=== PATIENT | male | born 1995 | race Hispanic/Latino ===

== ENCOUNTER 2021-06-08 16:35 | Emergency (ER) | payer OTHER ==
[~2021-06-08] VITALS: Ht 165.1 cm; Wt 70.3 kg
--- NOTE | 2021-06-08 16:51 | NUR ---
ARRIVAL PRESENTED TO ED RM#6 AMBULATORY WITH C/O "CHEST HEAVINESS/TIGHTNESS," STARTED YESTERDAY. TESTED POSITIVE FOR COVID LAST 05/31/20. VS OBTAINED. DR. DRUMMOND NOTIFIED OF PATIENT ARRIVAL/VS.
--- NOTE | 2021-06-08 16:52 | ER.PDOC ---
General Chief Complaint: Requesting Medical Care Stated Complaint: CHEST HEAVINESS Time seen by MD: 16:50 Source: patient Exam Limitations: no limitations History of Present Illness Initial Comments This is a 26-year-old man who comes to the emergency department with chest pain that is described as a tightness and pressure. It started yesterday and is sti ll present today although it is less severe. He tested positive for Covid a days ago although he had the to Pfizer immunizations. No prior medical history no surgeries in the past he is not allergic to anything he was taking DayQuil and Tylenol for his symptoms. Activities at Onset: none Modifying Factors: breathing Allergies: Coded Allergies: No Known Allergies (Unverified , 06/08/21) Past Medical History Medical History: no pertinent history Constitutional: denies no symptoms reported, denies see HPI, denies chills, denies diaphoresis, denies fever, denies malaise, denies weakness, denies other EENTM: denies no symptoms reported, denies see HPI, denies eye pain, denies blurred vision, denies tearing, denies double vision, denies ear pain, denies ear discharge, denies nose pain, denies nose congestion, denies throat pain, denies throat swelling, denies mouth pain, denies mouth swelling, denies other Respiratory: denies no symptoms reported, denies see HPI, denies cough, denies orthopnea, denies shortness of breath, denies SOB with exertion, denies SOB at rest, denies stridor, denies wheezing, denies other Cardiovascular: denies no symptoms reported, denies see HPI, denies chest pain, denies edema, denies irregular heart rate, denies lightheadedness, denies palpitations, denies syncope, denies other Gastrointestinal: denies no symptoms reported, denies see HPI, denies abdomen distended, denies abdominal pain, denies blood streaked bowels, denies constipated, denies diarrhea, denies difficulty swallowing, denies nausea, denies poor appetite, denies poor fluid intake, denies rectal bleeding, denies vomiting, denies other Genitourinary: denies no symptoms reported, denies see HPI, denies burning, denies dysuria, denies discharge, denies frequency, denies flank pain, denies hematuria, denies incontinence, denies pain, denies urgency, denies other Musculoskeletal: denies no symptoms reported, denies see HPI, denies back pain, denies gout, denies joint pain, denies joint swelling, denies muscle pain, denies muscle stiffness, denies neck pain, denies other Skin: denies no symptoms reported, denies see HPI, denies change in color, denies change in hair/nails, denies dryness, denies lesions, denies lumps, denies rash, denies other Psychiatric/Neurological: denies no symptoms reported, denies see HPI, denies anxiety, denies depressed, denies emotional problems, denies headache, denies numbness, denies paresthesia, denies pre-existing deficit, denies seizure, denies tingling, denies tremors, denies weakness, denies other Endocrine: denies no symptoms reported, denies see HPI, denies excessive sweati ng, denies flushing, denies intolerance to cold, denies intolerance to heat, denies increased hunger, denies increased thrist, denies increased urine, denies unexplained weight gain, denies unexplaned weight loss, denies other Hematologic/Lymphatic: denies no symptoms reported, denies see HPI, denies anemia, denies blood clots, denies easy bleeding, denies easy bruising, denies swollen glands, denies other All Other Systems: Reviewed and Negative Physical Exam General Appearance: No Apparent Distress, WD/WN HEENT: PERRL/EOMI, Normal ENT Inspection, TMs Normal, Pharynx Normal Neck: Non-Tender, Full Range of Motion, Supple, Normal Inspection Respiratory: chest non-tender, lungs clear, normal breath sounds, no respiratory distress, no accessory muscle use Cardiovascular: Normal Peripheral Pulses, Regular Rate, Rhythm, No Edema, No Gallop, No JVD, No Murmur Gastrointestinal: Normal Bowel Sounds, No Organomegaly, No Pulsatile Mass, Non Tender, Soft Rectal: Normal Exam Extremities: Normal Range of Motion, Non-Tender, Normal Inspection, No Pedal Edema, No Calf Tenderness, Normal Capillary Refill Neurologic/Psychiatric: director of clinical services II-XII NML as Tested, No Motor/Sensory Deficits, Alert, Normal Mood/Affect, Oriented x 3 Skin: Normal Color, Warm/Dry Lymphatic: No Adenopathy ER DEPART Departure Time of Disposition: 17:55 Disposition: 01 HOME / SELF CARE / HOMELESS Impression: Primary Impression: Chest pain Condition: Stable Patient Instructions: Chest Pain (Nonspecific) Referrals: PCP,UNKNOWN (PCP) PRIMARY CARE PROVIDER Additional Instructions: Return to the emergency department if you have any worsening symptoms. Duration or Time Spent with Pa: unknown Problem Qualifiers Primary Impression: Chest pain Chest pain type: unspecified Qualified Codes: R07.9 - Chest pain, unspecified KAREEM DRUMMOND MD Jun 08, 2021 16:52
[2021-06-08 16:53] VITALS: BP_SYST 162; BP_DIAS 102; BP_DIAS 77
--- NOTE | 2021-06-08 16:57 | PCM.EKG ---
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
[2021-06-08 17:12] LABS: BASOPHIL % 0.4 % (0.0-0.2); EOSINOPHIL # 0.1 10^3/uL (0.0-0.2); EOSINOPHIL % 0.8 % (0.0-5.0); LYMPHOCYTES # 2.48 10^3/uL1 (1.0-4.8); LYMPHOCYTES % 27.5 % (24.0-44.0); MEAN CORP HGB 28.6 pg (26-34); MONOCYTES # 0.8 10^3/uL (0.3-0.8); MONOCYTES % 9.2 % (5.0-12.0); NEUTROPHIL # 5.6 10^3/uL (1.8-7.7); NEUTROPHILS % 61.7 % (41.0-85.0); PLATELET COUNT 275 10^3/uL (150-400); RED CELL DISTRIBUTION WIDTH 12.4 % (11.5-14.5)
--- NOTE | 2021-06-08 17:18 | DIREP ---
PROCEDURE:CHEST 1 VIEW COMPARISON:None. INDICATIONS:chest pain FINDINGS: LUNGS/PLEURA:No significant pulmonary parenchymal abnormalities. No effusions. VASCULATURE:Normal. Unremarkable pulmonary vasculature. CARDIAC:Normal. No cardiac silhouette abnormality or cardiomegaly. MEDIASTINUM:Normal. No visible mass or adenopathy. BONES:Normal. No fracture or visible bony lesion. OTHER:Negative. CONCLUSION:No acute cardiopulmonary abnormality. Dictated by: Josh Alfaro M.D. on 06/08/2021 at 05:16 PM
[2021-06-08 17:33] LABS: CARBON DIOXIDE 29.1 mmol/L (20.0-32)
== END 2021-06-08 17:59 | disposition home or self-care (01) ==
LOC: ER 16:35
DX: R07.89 Other chest pain (principal)
CPT/HCPCS: 36415; 71045; 80053; 84484; 85025; 85379; 93005; 99285